=== PATIENT | female | born 1955 | race Caucasian/White ===

== ENCOUNTER 2024-04-02 21:53 | Emergency (ER) | payer MEDICARE, BC, SELFPAY ==
[2024-04-02 22:03] VITALS: BP 115/66
[2024-04-02 22:21] LABS: % Basophils 0.4 % (0-2); % Eosinophils 1.7 % (0-6); % Immature Granulocytes 0.4 % (0-0.5); % Lymphocytes 39.2 % (20.5-51.1); % Monocytes 11.9 % (1.7-9.3); % Neutrophils 46.4 % (42.2-75.2); Absolute Eosinophils 0.2 10^3/uL (0-0.7); Absolute Lymphocytes 3.8 10^3/uL (1.2-3.4); Absolute Monocytes 1.2 10^3/uL (0.1-0.6); Absolute Neutrophils 4.5 10^3/uL (1.4-6.5); Hematocrit 38.6 % (37.0-47.0); Mean Corp Hgb Conc. 36.3 g/dL (33.0-37.0); Mean Corpuscular Hgb 29.6 pg (27.0-31.0); Mean Corpuscular Volume 81.6 fL (81.0-99.0); Nucleated Red Blood Cells % 0 %; Platelet Count 316 10^3/uL (130-400); Red Blood Cell Count 4.73 10^6/uL (4.20-5.40); Red Cell Dist. Width 12.2 % (11.5-14.5); White Blood Cell Count 9.7 10^3/uL (4.8-10.8)
[2024-04-02 22:33] LABS: ALT (SGPT) 13 U/L (0-35); AST (SGOT) 20 U/L (14-36); Albumin 4.2 g/dl (3.5-5.0); Alkaline Phosphatase 60 U/L (38-126); Blood Urea Nitrogen 22 mg/dl (7-17); Calcium 9.5 mg/dl (8.4-10.2); Carbon Dioxide 30 mmol/L (22-30); Chloride 103 mmol/L (98-107); Glucose 114 mg/dl (70-99); Potassium 4.4 mmol/L (3.5-5.1); Sodium 137 mmol/L (135-145); Total Bilirubin 0.3 mg/dl (0.2-1.3); Total Protein 6.7 g/dl (6.3-8.2); eGFR > 60.00
[2024-04-02 23:54] VITALS: BP 118/74
[2024-04-03 00:47] VITALS: BP 146/59; BMI 18.9
--- NOTE | 2024-04-03 01:13 | ED.GENMED ---
History of Present Illness
General
Chief Complaint: Extremity Pain (non-traumatic)
Source: patient and spouse
Time Seen by Provider: 04/03/24 00:51
History of Present Illness
History of Present Illness:
68-year-old female who suffered a fracture to her left foot almost a year ago, has been pain from chronic pain ever since, presents to the emergency department seeking further relief from pain, states that meds prescribed by her pain doctor are not
working. Incidentally, patient was recently diagnosed with a UTI and is on an antibiotic. She denies pain elsewhere, fever, chills, nausea, vomiting, and new numbness or tingling. She denies redness, warmth, swelling. The pain is located at the
posterior ankle and across the top of the foot in particular. She is still able to walk.
Past History
Past History
ED Past Medical History: Other (Hypercholesterolemia left peroneal neuropathy, chronic left foot pain)
ED Past Surgical History: Gynecological and Orthopedic
Social History
Tobacco: Non-smoker
Alcohol: None
Drug: None
Personal:
Living: with family
Phy Exam
Physical Exam
Physical Exam:
GENERAL: Alert , in no apparent distress, patient is moving legs restlessly
EYE: pupils equal and reactive
NECK: Supple, no significant adenopathy.
ENT: o/p clr, mmm.
CARDIAC: Regular rate and rhythm .
LUNGS: Clear breath sounds bilaterally, no acute respiratory distress, no wheezes/rales/rhonchi
ABDOMEN: Soft, without focal tenderness, no r/g, no cvat
NEUROLOGICAL: Alert and oriented, no focal neuro deficits
SKIN: Warm and dry, skin intact.
MUSCULOSKELETAL: No edema, well perfused. No redness warmth swelling fluctuance or other skin or soft tissue changes noted. No specific tenderness to palpation. Full range of motion, no calf tenderness
PSYCH: Normal and appropriate interaction.
Course
Orders/Labs/Results
Orders:
Orders
04/02/24 22:15
CMP [Comprehensive Metabolic Panel] Urgent
Complete Blood Count/With Diff Urgent
04/03/24 01:13
Lorazepam [Ativan] 1 mg IM NOW STA
Abnormal Lab Results
04/02/24
22:15
Absolute Lymphs (auto) 3.8 H 10^3/uL
(1.2-3.4)
Absolute Monos (auto) 1.2 H 10^3/uL
(0.1-0.6)
Monocytes % 11.9 H %
(1.7-9.3)
BUN 22 H mg/dl
(7-17)
Glucose 114 H mg/dl
(70-99)
04/02/24 22:15
04/02/24 22:15
Vital Signs
Initial and Last Documented VS:
Initial Vital Signs
Temp Pulse Resp BP Pulse Ox
98.8 F 84 24 115/66 98
04/02/24 22:03 04/02/24 22:03 04/02/24 22:03 04/02/24 22:03 04/02/24 22:03
Last Documented Vital Signs
Temp Pulse Resp BP Pulse Ox
98.8 F 71 20 146/59 98
04/02/24 22:03 04/03/24 00:47 04/03/24 00:47 04/03/24 00:47 04/03/24 00:47
*Critical Care Note
Total Time (30-74mins, 75-104mins- exclusive of procedures): Not Applicable
Update Note
Update Note:
Patient presents to the Emergency Department with ___left foot pain, chronic
Number and Complexity of Problems Addressed at the Encounter
� Chronic conditions affecting care:
� Acute Exacerbation and/or Progression of Chronic Illness:
� Differential Diagnosis includes: But not limited to exacerbation of chronic pain, neuropathy, etc.
Amount and/or Complexity of Data to be Reviewed and Analyzed
� I performed an independent evaluation of and my interpretation is:
EKG:
CT:
Xrays:
Laboratory Studies:
Other:
� Review of other/old records reveals: Patient brought her EMG result which demonstrates left peroneal neuropathy
� Clinical information was obtained by an independent historian: who is bedside
� Prescriptions/Medications Considered but not given:
� Further testing considered but not performed:
Risk of Complications and/or Morbidity or Mortality of Patient Management
� Social determinants of health affecting care:
� Discussion with other providers (PCP, Hospitalists, Consultants, etc):
� Escalation of care including admission/observation vs risk of discharge considered: 1:15 AM Long discussion with patient regarding prolonged course of pain that has been resistant to variety of different meds from which she
said unmanageable side effects including trazodone, Lyrica, tramadol, Vicodin. She has not had difficulty or side effects from benzodiazepines. We will give her a one-time dose of Ativan here to help with her anxiety restlessness and lack of
sleep, understanding that this is essentially the only treatment option that I can propose. Patient is resistant to suggestion of Tylenol or nonsteroidals. At their request, I am giving her follow-up with a PCP and pain management doctor in the
area.
ED Attending Note
-
Portions of this chart may have been created with voice recognition software.� Occasional wrong word or��sound alike� substitutions may have occurred due to the inherent limitations of voice recognition software.
Discharge Plan
Departure
Patient Disposition: Home (Routine Discharge)
Date of Disposition: 04/03/24
Time of Disposition: 01:16
Patient with high blood pressure during this ER visit?: Yes
Condition: Good
Discharge Problem:
Chronic foot pain
Instructions: Muscle and Bone Pain (DC), BLOOD PRESSURE
Referrals:
Michele Angela MD [Active] - Next open appointment
Viridiana Glynn MD [Active] - Next open appointment
Activity Restrictions/Additional Instructions:
IF YOU DEVELOP REDNESS/WARMTH/SWELLING, FEVER, DIFFICULTY WALKING, NEW PAIN OR OTHER WORRISOME SIGNS, GO TO THE ER IMMEDIATELY!
Interventions
Interventions:
*Risk Screen - Suicide Last Done: 04/02/24 22:03
*General Assessment Last Done: 04/03/24 01:14
*Neglect/Abuse Screening Last Done: 04/02/24 22:03
ED- Fall Risk Assessment Last Done: 04/03/24 00:47
*Nursing Disposition Last Done: 04/03/24 02:15
ED-Skin Assessment Last Done: 04/03/24 00:47
ED-Peripheral Vascular Assessment Last Done: 04/03/24 00:47
ED-Musculoskeletal Assessment Last Done: 04/03/24 00:47
Discharge Date and Time
Discharge Date/Time: 04/03/24 02:15
Print Language: TAMAZIGHT
[2024-04-03] MEDS: ATIVAN 1 MG IM (01:22)
== END 2024-04-03 02:15 | disposition home or self-care (01) ==
LOC: EMR 21:53
PROVIDERS: Emergency Medicine; EMERGENCY PHYSICIAN Emergency Medicine; FAMILY PHYSICIAN Family Medicine
DX: G89.29 Other chronic pain (principal); M79.672 Pain in left foot; E78.00 Pure hypercholesterolemia, unspecified; G62.9 Polyneuropathy, unspecified; F41.9 Anxiety disorder, unspecified
CPT/HCPCS: 99283; 96372; 80053; 85025

== ENCOUNTER 2025-08-03 15:36 | Emergency (ER) | payer MEDICARE, BC, SELFPAY ==
[2025-08-03 15:40] VITALS: BP 151/73
[2025-08-03 16:04] LABS: Hematocrit 42.3 % (37.0-47.0); Hemoglobin 15.0 g/dL (12.0-16.0); Mean Corp Hgb Conc. 35.5 g/dL (33.0-37.0); Mean Corpuscular Volume 82.3 fL (81.0-99.0); Nucleated Red Blood Cells % 0 %; Platelet Count 266 10^3/uL (130-400); Red Cell Dist. Width 12.8 % (11.5-14.5)
[2025-08-03 16:25] LABS: ALT (SGPT) 14 U/L (0-35); AST (SGOT) 17 U/L (14-36); Albumin 4.2 g/dl (3.5-5.0); Alkaline Phosphatase 62 U/L (38-126); Blood Urea Nitrogen 18 mg/dl (7-17); Calcium 9.6 mg/dl (8.4-10.2); Carbon Dioxide 29 mmol/L (22-30); Chloride 103 mmol/L (98-107); Glucose 106 mg/dl (70-99); Potassium 4.6 mmol/L (3.5-5.1); Sodium 135 mmol/L (135-145); Total Protein 7.1 g/dl (6.3-8.2); eGFR > 60.00
--- NOTE | 2025-08-03 18:23 | ED.GENMED ---
History of Present Illness
<DMITRI Harvey - Last Filed: 08/04/25 10:46>
General
Chief Complaint: Musculo-Skeletal Complaint
Source: patient
Exam Limitations: none and other
Time Seen by Provider: 08/03/25 18:22
Nursing documentation reviewed up to this point in time: agreed with
History of Present Illness
History of Present Illness:
70-year-old female presents to the ER for evaluation. Patient has a history of chronic foot and ankle pain. Patient has had chronic ankle pain since April 2023 after significant injury and surgery. 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
autonomic small fiber dysfunction. She recently had a small fiber nerve biopsy several months ago at [facility]. She has tried to follow-up with a specialist at [facility]. She had this treated with gabapentin and also with oxycodone if needed
however does not like to take it because of constipation. She reports she has not taken it in at least 10 days. She reports pain however has been worse for the past 10 days. She feels pain rating up her calf. She reports that her foot gets very
cold. She also reports it affects her bladder and at times she is not able to fully empty her bladder.
She denies any fever chills.
Past History
<DMITRI Harvey - Last Filed: 08/04/25 10:46>
Past History
ED Past Medical History: Other (Hypercholesterolemia left peroneal neuropathy, chronic left foot pain)
ED Past Surgical History: Gynecological and Orthopedic
Social History
Tobacco: Non-smoker
Alcohol: None
Drug: None
Personal:
Living: with family
Phy Exam
<DMITRI Harvey - Last Filed: 08/04/25 10:46>
General Physical Exam
General Presentation: no apparent distress
General age: appears stated age
General Skin: warm and dry
General Habitus: normal
General Mental: alert
General Hydration: appears well hydrated
Neurological Exam
Neurological Exam: alert and oriented x3
Musculoskeletal Exam
Musculoskeletal Exam: other (Left lower extremity with strong pulses no obvious swelling no erythema full rom )
Skin Exam
Skin Exam: normal color and warm/dry
Psychiatric Exam
Psychiatric Exam: normal mood/affect
Course
<DMITRI Harvey - Last Filed: 08/04/25 10:46>
Orders/Labs/Results
Orders:
Orders
08/03/25 15:59
CMP [Comprehensive Metabolic Panel] Urgent
Complete Blood Count/With Diff Urgent
08/03/25 18:41
Bladder Scan- Treatment ONCE
Ketorolac [Toradol] 30 mg IM NOW STA
Venous Doppler Lwr Ext Left [US Periph Venous LOWER Ext LT] Urgent
Comment:
Reason For Exam: pain in calf
08/03/25 19:03
HYDROmorphone [Dilaudid] 0.5 mg IM NOW STA
08/03/25 19:42
HYDROmorphone [Dilaudid] 0.5 mg IV NOW STA
08/03/25 21:15
IV Insert/Care/Rem.- Treatment PRN
Ondansetron Injectable [Zofran] 4 mg IV NOW STA
08/03/25 21:16
0.9% Sodium Chloride 1000 ml [Nss] 1,000 ml IV BOLUS
08/03/25 21:35
Ondansetron Injectable [Zofran] 4 mg IV NOW STA
08/03/25 23:17
Ondansetron Injectable [Zofran] 4 mg IV NOW STA
08/04/25 01:13
Ondansetron Orally Disint [Zofran Odt (Orally Disintegrating)] 4 mg .ROUTE .STK-MED ONE
08/04/25 01:14
Ondansetron Orally Disint [Zofran Odt (Orally Disintegrating)] 4 mg PO NOW STA
Abnormal Lab Results
08/03/25
15:59
Absolute Monos (auto) 0.9 H 10^3/uL
(0.1-0.6)
BUN 18 H mg/dl
(7-17)
Glucose 106 H mg/dl
(70-99)
08/03/25 15:59
08/03/25 15:59
Vital Signs
Initial and Last Documented VS:
Initial Vital Signs
Temp Pulse Resp BP Pulse Ox
98.4 F 80 22 151/73 98
08/03/25 15:40 08/03/25 15:40 08/03/25 15:40 08/03/25 15:40 08/03/25 15:40
Last Documented Vital Signs
Temp Pulse Resp BP Pulse Ox
98.1 F 63 20 156/54 98
08/03/25 19:30 08/03/25 23:22 08/03/25 23:22 08/03/25 23:22 08/04/25 01:45
<Rigo Gracia, DO - Last Filed: 08/03/25 23:57>
Orders/Labs/Results
Orders:
Orders
08/03/25 15:59
CMP [Comprehensive Metabolic Panel] Urgent
Complete Blood Count/With Diff Urgent
08/03/25 18:41
Bladder Scan- Treatment ONCE
Ketorolac [Toradol] 30 mg IM NOW STA
Venous Doppler Lwr Ext Left [US Periph Venous LOWER Ext LT] Urgent
Comment:
Reason For Exam: pain in calf
08/03/25 19:03
HYDROmorphone [Dilaudid] 0.5 mg IM NOW STA
08/03/25 19:42
HYDROmorphone [Dilaudid] 0.5 mg IV NOW STA
08/03/25 21:15
IV Insert/Care/Rem.- Treatment PRN
Ondansetron Injectable [Zofran] 4 mg IV NOW STA
08/03/25 21:16
0.9% Sodium Chloride 1000 ml [Nss] 1,000 ml IV BOLUS
08/03/25 21:35
Ondansetron Injectable [Zofran] 4 mg IV NOW STA
08/03/25 23:17
Ondansetron Injectable [Zofran] 4 mg IV NOW STA
08/04/25 01:13
Ondansetron Orally Disint [Zofran Odt (Orally Disintegrating)] 4 mg .ROUTE .STK-MED ONE
08/04/25 01:14
Ondansetron Orally Disint [Zofran Odt (Orally Disintegrating)] 4 mg PO NOW STA
Abnormal Lab Results
08/03/25
15:59
Absolute Monos (auto) 0.9 H 10^3/uL
(0.1-0.6)
BUN 18 H mg/dl
(7-17)
Glucose 106 H mg/dl
(70-99)
08/03/25 15:59
08/03/25 15:59
Vital Signs
Initial and Last Documented VS:
Initial Vital Signs
Temp Pulse Resp BP Pulse Ox
98.4 F 80 22 151/73 98
08/03/25 15:40 08/03/25 15:40 08/03/25 15:40 08/03/25 15:40 08/03/25 15:40
Last Documented Vital Signs
Temp Pulse Resp BP Pulse Ox
98.1 F 63 20 156/54 98
08/03/25 19:30 08/03/25 23:22 08/03/25 23:22 08/03/25 23:22 08/04/25 01:45
<DMITRI Harvey - Last Filed: 08/04/25 10:46>
MDM/Problems Addressed
MDM/Problems Addressed:
As documented patient is a 70-year-old female with history of chronic left foot ankle pain from a diagnosis of ganglion autonomic small fiber dysfunction. She was diagnosed at [facility] with a nerve biopsy. She is scheduled to see neurology at
[facility] in the next 2 weeks.
She is on chronic gabapentin and has oxycodone at home however that is not relieving her symptoms she complains of intense pain to her right foot and ankle cold sensation. She presents awake alert no acute distress there is no obvious swelling or
redness to her foot foot is cool to touch however bilateral feet are same cool temperature. She has strong pulses.
She does complain of some pain rating to her left calf will check an ultrasound. If negative will discharge home.
patient was given a shot of Dilaudid here for pain she does have pain medication at home.
Discussed with patient to continue taking her pain medication as previously prescribed neurology as scheduled.
<DMITRI Harvey - Last Filed: 08/04/25 10:46>
*Radiology
Radiology exam reviewed: radiology read reviewed
*Pulse Oximetry
SaO2: 98
Oxygen Mode of Delivery: Room air
Patient hypoxic: no
*Critical Care Note
Total Time (30-74mins, 75-104mins- exclusive of procedures): Not Applicable
ED Attending Note
<DMITRI Harvey - Last Filed: 08/04/25 10:46>
-
Portions of this chart may have been created with voice recognition software.� Occasional wrong word or��sound alike� substitutions may have occurred due to the inherent limitations of voice recognition software.
<Rigo Gracia DO - Last Filed: 08/03/25 23:57>
ED Attending Note
Patient seen and examined by attending physician: Yes
ED Attending Note:
I have reviewed and agree with history treatment plan by DMITRI Waters. My exam revealed 68-year-old female with difficulty walking due to pain in left foot. Normal pulse in bilateral feet.
Patient vomited after receiving Dilaudid. Now improved after IV fluids and IV Zofran. Discharged to follow-up with neurology.
Discharge Plan
Departure
Patient Disposition: Home (Routine Discharge)
Date of Disposition: 08/03/25
Time of Disposition: 23:54
Patient with high blood pressure during this ER visit?: No
Condition: Fair
Covid-19: Not Applicable
Discharge Problem:
Chronic pain
Prescriptions:
No Action
rosuvastatin 10 mg Tablet
10 mg PO DAILY
Dulcolax (bisacodyl)
4 tab PO DAILY
Rx Instructions:
3-4 tabs daily
estradiol
1 dose PO DAILY
Patient Comments:
unsure of dose
gabapentin
100 mg PO TID
Referrals:
Cesar Beavers MD [Active, Neurology] - Call in 1-3 days for appt
Renan Contreras MD [Family Provider, Internal Medicine] - Call in 1-3 days for appt
Activity Restrictions/Additional Instructions:
Chronic pain:
Follow-up with [facility] as scheduled .you may continue to take your previously prescribed pain medications.
Interventions
Interventions:
*Risk Screen - Suicide Last Done: 08/03/25 15:40
*General Assessment Last Done: 08/03/25 18:38
*Neglect/Abuse Screening Last Done: 08/03/25 18:37
*ED- Fall Risk Assessment Last Done: 08/03/25 18:38
*ED COVID-19 Vaccine History Last Done: 08/03/25 18:38
*ED Influenza Vaccine History Last Done: 08/03/25 18:38
*Nursing Disposition Last Done: 08/04/25 01:45
ED-Musculoskeletal Assessment Last Done: 08/03/25 19:30
Discharge Date and Time
Discharge Date/Time: 08/04/25 01:45
Print Language: VIETNAMESE
[2025-08-03 19:30] VITALS: BP 129/69; BMI 17.5
[2025-08-03] MEDS: DILAUDID 0.5 MG IM (19:41)
[2025-08-03] MEDS: ZOFRAN 4 MG IV ×2 (21:35→23:19)
[2025-08-03] MEDS: NSS 1000 IV (21:36)
[2025-08-03 22:00] VITALS: BP 162/67
[2025-08-03 22:28] VITALS: BP 162/67
[2025-08-03 23:22] VITALS: BP 156/54
[2025-08-04] MEDS: ZOFRAN ODT (ORALLY DISINTEGRATING) 4 MG PO (01:14)
== END 2025-08-04 01:45 | disposition home or self-care (01) ==
LOC: EMR 15:36
PROVIDERS: Emergency Medicine; EMERGENCY PHYSICIAN Emergency Medicine; FAMILY PHYSICIAN Internal Medicine
DX: G89.29 Other chronic pain (principal); E78.00 Pure hypercholesterolemia, unspecified; M67.40 Ganglion, unspecified site
CPT/HCPCS: 99284; 96374; 96375; 96376; 96372; 80053; 85025; 93971